=== PATIENT | female | born 1950 | race Two or more races ===

== ENCOUNTER 2018-05-06 11:19 | Emergency (ER) | payer OTHER ==
[~2018-05-06] VITALS: Ht 157.5 cm; Wt 53.1 kg
[2018-05-06] MEDS ORDERED: GLUCOTROL10 MG PO (11:42)
[2018-05-06] MEDS ORDERED: KETO10TA2 PO (18:34)
[2018-05-06] MEDS ORDERED: INTESTINEX680 M1 PO (18:34)
[2018-05-06] MEDS ORDERED: PEPCID AC20 MG PO (18:34)
[2018-05-06] MEDS ORDERED: LEVSIN/SL0.125 MG SL (18:34)
== END 2018-05-06 19:20 | disposition home or self-care (01) ==
LOC: ER 11:19
DX: K57.90 Diverticulosis of intestine, part unspecified, without perforation or abscess without bleeding (principal)